=== PATIENT | female | born 2000 | race Caucasian/White ===

== ENCOUNTER 2024-06-05 12:32 | Emergency (ER) | payer OTHER, SELFPAY ==
[2024-06-05 12:35] VITALS: BP 129/85
[2024-06-05 12:54] VITALS: BP 115/78
[2024-06-05 13:00] VITALS: BP 118/80
--- NOTE | 2024-06-05 13:00 | ED.GENMED ---
History of Present Illness
General
Chief Complaint: Chest Pain
Source: patient
Exam Limitations: none
Time Seen by Provider: 06/05/24 12:48
History of Present Illness
History of Present Illness:
See MDM
Past History
Past History
ED Past Medical History: Psychiatric (Anxiety) and Other (Juvenile arthritis)
ED Past Surgical History: None, Orthopedic (Microdiscectomy) and Tonsilectomy
Social History
Tobacco: Non-smoker
Living: with family
Phy Exam
Physical Exam
Physical Exam:
See MDM
Scores
Heart Score for Chest Pain Patients
STEMI patient?: No
History: Slightly or Non-Suspicious
ECG: Normal
Age: </= 45 years
Risk Factors: No Risk Factors
Troponin: </= Normal Limit
Heart Score for Chest Pain Patients: 0
Heart Score Risk: 2.5% MACE over next 6 weeks
Course
Orders/Labs/Results
Orders:
Orders
06/05/24 12:33
EKG [Electrocardiogram (*1)] Urgent
Reason for Study: Chest Pain
06/05/24 12:34
EKG- Treatment ONCE
06/05/24 12:55
Ketorolac [Toradol] 30 mg IV NOW STA
06/05/24 12:56
Test Result ONCE
CR Chest - 2 Views Urgent
Comment:
Reason For Exam: central chest pain
06/05/24 13:02
CPK [Creatine Phosphokinase] Urgent
Complete Blood Count/With Diff Urgent
Comprehensive Metabolic Panel Urgent
HCG, Serum Qualitative Screen Urgent
Troponin I Urgent
Abnormal Lab Results
06/05/24
13:02
MCV 79.4 L fL
(81.0-99.0)
MCH 26.8 L pg
(27.0-31.0)
Absolute Monos (auto) 0.8 H 10^3/uL
(0.1-0.6)
Absolute Eos (auto) 0.9 H 10^3/uL
(0-0.7)
Neutrophils % 30.0 L %
(42.2-75.2)
Monocytes % 11.1 H %
(1.7-9.3)
Eosinophils % 12.3 H %
(0-6)
06/05/24 13:02
06/05/24 13:02
Vital Signs
Initial and Last Documented VS:
Initial Vital Signs
Temp Pulse Resp BP Pulse Ox
97.6 F 92 16 129/85 97
06/05/24 12:35 06/05/24 12:35 06/05/24 12:35 06/05/24 12:35 06/05/24 12:35
Last Documented Vital Signs
Temp Pulse Resp BP Pulse Ox
97.6 F 77 17 102/72 98
06/05/24 12:35 06/05/24 13:00 06/05/24 13:00 06/05/24 13:30 06/05/24 13:30
MDM/Problems Addressed
Differential Diagnosis Includes:
HPI and MDM Narrative:
23-year-old female presenting with central chest pain. This is associated with other symptoms such as muscle aches and fatigue. She does have a history of rheumatoid arthritis. She denies any increased lifting or increase in exercise. Patient
also complains of mild cough that appears to be worse at nighttime when she lays down.
Patient is extremely well-appearing nontoxic. There is point tenderness along palpation of her xiphoid process. There is no trauma noted. Will give dose of Toradol and obtain chest x-ray. Will obtain basic blood work and 1 troponin but I had a
long discussion with patient indicating this is less likely cardiac
Physical exam
General: Well appearing and non-toxic
HEENT: protecting airway
Neck: supple
CV: No evidence of cyanosis. Regular rate and rhythm
Chest: Reproducible tenderness to sternum and xiphoid process
Resp: No accessory muscle use. Lungs clear
Abd: Non-distended
Extremities: No deformities. No leg edema
Neuro: alert
Psych: Normal affect
Skin: Intact
Problems Addressed including Acute and Chronic Conditions affecting care:
1. Chest pain
Acuity: acute
Prognosis: stable
Details: EKG nonischemic. Symptoms appear consistent with ACS. Will obtain basic blood work including troponin. Will obtain chest x-ray
Updates
Chest x-ray clear. Troponin negative. Remainder of blood work without clinical significance. Discussed follow-up with PCP
Differential Diagnosis (but not limited to): Musculoskeletal pain, rheumatoid arthritis, muscle strain
Testing considered: D-dimer but she is neither tachycardic nor hypoxic
Drug therapy (if applicable): OTC meds, please see d/c instruction regarding Rx drugs
Amount and/or Complexity of Data Reviewed
Clinical info obtained from: Patient
External data reviewed: N/A
Labs I independently reviewed (but not limited to): Troponin normal
Radiology: X-ray independently reviewed: Chest x-ray clear
Pulse Ox: not hypoxic
EKG independently reviewed: Sinus rhythm, normal axis, no STEMI
Carry In Worker: N/A
Critical Care: N/A
Risk of Complication:
Social Determinants of health: Good social support
Discussed with other providers: N/A
Escalation of Care includes Admit/Obs: After being observed in the Emergency Department, pt stable for discharge.
Occasional wrong word or 'sound a like' substitutions may have occurred due to the inherent limitations of voice recognition software. Read the chart carefully and recognize, using context, where substitutions have occurred.
*Critical Care Note
Total Time (30-74mins, 75-104mins- exclusive of procedures): Not Applicable
ED Attending Note
-
Portions of this chart may have been created with voice recognition software.� Occasional wrong word or��sound alike� substitutions may have occurred due to the inherent limitations of voice recognition software.
Discharge Plan
Departure
Patient Disposition: Home (Routine Discharge)
Date of Disposition: 06/05/24
Time of Disposition: 13:54
Patient with high blood pressure during this ER visit?: No
Discharge Problem:
Chest pain
Instructions: Chest Pain That Is Not Caused by the Heart (DC)
Prescriptions:
No Action
lorazepam 0.5 MG tablet
0.5 mg PO Q4HPRN PRN (Reason: anxiety)
pantoprazole 40 MG tablet,delayed release (DR/EC)
20 mg PO DAILY
fluoxetine 20 MG capsule
40 mg PO DAILY
Humira(CF) Pen [id number] 80 MG/0.8 ML pen injector kit
40 mg SC SA
cetirizine [Zyrtec] 10 mg Tablet
10 mg PO HS
leflunomide 20 mg Tablet
20 mg PO DAILY
medroxyprogesterone [Depo-Provera] 150 mg/mL Syringe
150 mg IM Q12W
Activity Restrictions/Additional Instructions:
Please return for any worsening symptoms.
You may return at any time if you have further concerns.
Please follow up with your doctor at the first available appointment, preferably this week.
Thank you for choosing [facility].
Interventions
Interventions:
*Risk Screen - Suicide Last Done: 06/05/24 12:35
*General Assessment Last Done: 06/05/24 12:35
*Neglect/Abuse Screening Last Done: 06/05/24 12:35
*ED COVID-19 Vaccine History Last Done: 06/05/24 12:35
ED- Cardiac Assessment Last Done: 06/05/24 13:36
Discharge Date and Time
Print Language: HUNGARIAN
[2024-06-05 13:13] LABS: % Basophils 1.3 % (0-2); % Eosinophils 12.3 % (0-6); % Immature Granulocytes 0.1 % (0-0.5); % Lymphocytes 45.2 % (20.5-51.1); % Monocytes 11.1 % (1.7-9.3); Absolute Basophils 0.1 10^3/uL (0-0.2); Absolute Eosinophils 0.9 10^3/uL (0-0.7); Absolute Lymphocytes 3.1 10^3/uL (1.2-3.4); Absolute Monocytes 0.8 10^3/uL (0.1-0.6); Absolute Neutrophils 2.1 10^3/uL (1.4-6.5); Hematocrit 39.7 % (37.0-47.0); Hemoglobin 13.4 g/dL (12.0-16.0); Mean Corp Hgb Conc. 33.8 g/dL (33.0-37.0); Mean Corpuscular Hgb 26.8 pg (27.0-31.0); Mean Corpuscular Volume 79.4 fL (81.0-99.0); Mean Platelet Volume 10.2 fL (7.4-10.4); Nucleated Red Blood Cells % 0 %; Platelet Count 272 10^3/uL (130-400); Red Cell Dist. Width 13.2 % (11.5-14.5); White Blood Cell Count 6.9 10^3/uL (4.8-10.8)
[2024-06-05] MEDS: TORADOL 30 MG IV (13:24)
[2024-06-05 13:29] LABS: HCG, Serum Qualitative Screen Negative
[2024-06-05 13:30] VITALS: BP 102/72
[2024-06-05 13:31] LABS: ALT (SGPT) 28 U/L (0-35); AST (SGOT) 29 U/L (14-36); Albumin 4.7 g/dl (3.5-5.0); Alkaline Phosphatase 63 U/L (38-126); Blood Urea Nitrogen 11 mg/dl (7-17); Calcium 10.1 mg/dl (8.4-10.2); Carbon Dioxide 27 mmol/L (22-30); Chloride 102 mmol/L (98-107); Creatine Phosphokinase 77 U/L (30-135); Glucose 82 mg/dl (70-99); Potassium 4.3 mmol/L (3.5-5.1); Sodium 140 mmol/L (135-145); Total Bilirubin 0.4 mg/dl (0.2-1.3); Total Protein 7.6 g/dl (6.3-8.2); eGFR > 60.00
[2024-06-05 13:40] LABS: Troponin I < 0.012 ng/ml
== END 2024-06-05 14:09 | disposition home or self-care (01) ==
LOC: EMR 12:32
PROVIDERS: EMERGENCY PHYSICIAN Student in an Organized Health Care Education/Training Program; FAMILY PHYSICIAN Physician Assistant
DX: R07.89 Other chest pain (principal); F41.9 Anxiety disorder, unspecified; M06.9 Rheumatoid arthritis, unspecified
CPT/HCPCS: 96374; 99285; 71046; 80053; 82550; 84484; 84703; 85025; 93005